=== PATIENT | female | born 1995 | race Caucasian/White ===

== ENCOUNTER 2018-09-23 14:23 | Emergency (ER) | payer OTHER ==
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
== END 2018-09-23 15:55 | disposition home or self-care (01) ==
LOC: UCEAST 14:23
DX: S13.4XXA Sprain of ligaments of cervical spine, initial encounter (principal); V49.40XA Driver injured in collision with unspecified motor vehicles in traffic accident, initial encounter; Y92.410 Unspecified street and highway as the place of occurrence of the external cause
CPT/HCPCS: 72050; 99203; G0463